=== PATIENT | male | born 1940 | race Caucasian/White ===

== ENCOUNTER 2025-04-28 16:35 | Inpatient (IN) | payer MEDICARE, MEDICAID, SELFPAY ==
[2025-04-28] VITALS (36 sets, daily range): BP systolic 73–159; BP diastolic 44–91; PULSE 76–182; RESP 16–31; TEMP 36.4; O2SAT 54–98; BMI 20.3
--- NOTE | 2025-04-28 17:51 | XR_ITS ---
Examination: AP chest single view Technique one AP portable semiupright chest single view Date and time: April 28, 2025, 1812 hours Comparison August 03, 2021 INDICATIONS: Shortness of breath today with altered mental status. FINDINGS: Severe diffuse pneumonia on the right, consider aspiration pneumonia No significant cardiac enlargement Mild to moderate vascular congestion Moderate osteopenia IMPRESSION: Severe diffuse right lung pneumonia, consider aspiration pneumonia
--- NOTE | 2025-04-28 17:51 | EKG_ITS ---
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
--- NOTE | 2025-04-28 17:57 | PD.EDRME ---
Rapid Medical Screening Exam RME Arrival date/time: 04/28/25 16:35 Chief Complaint: Shortness of Breath/Dyspnea Time Seen by Provider: 04/28/25 18:31 Vital signs: Vital Signs Temperature 97.5 F 04/28/25 16:49 Pulse Rate 151 H 04/28/25 16:49 Respiratory Rate 26 H 04/28/25 16:49 Blood Pressure 132/75 H 04/28/25 16:49 Pulse Oximetry (%) 95 04/28/25 16:49 Oxygen Delivery Method Oxy Mask 04/28/25 16:49 Oxygen Flow Rate 15 04/28/25 16:49 RME Narrative: 84 year old male was BIBA from home for evaluation of shortness of breath and altered mental status. Per medics, BS 61 and given oral glucose by fire department, repeat BS 71. Patient is an active tobacco smoker.
[2025-04-28 18:08] LABS: Collection Type, Urine Clean Catch; RBC,Urine 0 /hpf (0-3)
[2025-04-28 18:09] LABS: Basophils # (Auto) 0.0 Thou/mm3 (0.0-0.2); Basophils % (Auto) 0 % (0-2.5); Eosinophils # (Auto) 0.1 Thou/mm3 (0.0-0.5); Eosinophils % (Auto) 1 % (0-10); Hematocrit 48.8 % (41.0-53.0); Hemoglobin 16.2 g/dL (13.5-16.0); Immature Granulocytes Auto 5.00 Thou/mm3 (0.00-0.00); Lactate (Lactic Acid) 4.7 mMol/L (0.4-2.0); Lymphocytes # (Auto) 0.3 Thou/mm3 (1.0-4.8); Lymphocytes % (Auto) 3 % (10-50); Mean Corpuscular HGB Conc 33.2 g/dl (31.0-37.0); Mean Corpuscular Hemoglobin 31.2 pg (25.0-35.0); Mean Corpuscular Volume 94 fL (80-100); Monocytes # (Auto) 0.3 Thou/mm3 (0.0-0.8); Monocytes % (Auto) 4 % (0-12); Neutrophils # (Auto) 3.2 Thou/mm3 (1.8-7.7); Neutrophils % (Auto) 37 % (37-80); Nucleated Red Blood Cell # 0.00 Thou/mm3 (0.00-0.00); Nucleated Red Blood Cell % 0 /100 WBC (0); Platelet Count 679 Thou/mm3 (140-440); RDW Standard Deviation 64.5 fL (35.1-43.9); Red Blood Count 5.19 Miln/mm3 (4.50-5.90); White Blood Count 8.9 Thou/mm3 (3.8-10.6)
[2025-04-28] MEDS: DEXTROSE 50%-WATER INJ 50 ML SYRINGE IVP (18:15)
[2025-04-28 18:20] LABS: Bacteria,Urine Rare; Bilirubin,Urine 1+ (Negative); Blood,Urine Negative (Negative); Clarity,Urine Turbid (Clear/Hazy); Color,Urine Yellow (Lt Yel-Yel); Glucose, Urine Negative (Negative); Hyaline Casts,Urine 1 /hpf (0-1); Ketones,Urine Trace (Negative); Leukocyte Esterase,Urine Positive (Negative); Nitrite,Urine Negative (Negative); PH,Urine 5.5 (5.0-7.0); Protein,Urine 1+ (Neg - Trace); Specific Gravity,Urine 1.027 (1.001-1.035); Squamous Epithelial Cell,Urine 2 /hpf (0-5); Urobilinogen,Urine Negative mg/dL (0.0-1.0); WBC,Urine 12 /hpf (0-5)
[2025-04-28 18:28] LABS: INR 1.2 (0.9-1.3); Partial Thromboplastin Time 32.2 Seconds (22.0-36.0); Prothrombin Time 13.2 Seconds (9.0-12.2)
[2025-04-28 18:29] LABS: B-Type Natriuretic Peptide 1079 pg/mL (0-100)
--- NOTE | 2025-04-28 18:29 | EDNOTE_ITS ---
ED SOB =RME/HPI General Chief Complaint: Shortness of Breath/Dyspnea Stated Complaint: SHORTNESS OF BREATH Time Seen by Provider: 04/28/25 18:31 Arrival date/time: 04/28/25 16:35 Limitations: no limitations RME / HPI RME / HPI Narrative: 84 year old male was BIBA from home for evaluation of shortness of breath and altered mental status. Per medics, BS 61 and given oral glucose by fire department, repeat BS 71. Patient is an active tobacco smoker. -------- Dr. Hay's Main ED Evaluation: 84yo male with a history of COPD BIBA from home presents to the ED for complaints of AMS and shortness of breath. Patient was found to have a blood sugar of 61 and was given oral glucose by the fire department, it went up to 71. Patient was placed on 15L nonrebreather mask en route and went up to 95% (from 75% room air). Patient is febrile here. Full ROS is unobtainable due to the patient's AMS. Related Data Home Medications ?Medication ?Instructions ?Recorded ?Confirmed albuterol sulfate 90 mcg/actuation 2 puff inhalation Q 4HR 08/04/21 08/04/21 aerosol inhaler docusate sodium 100 mg tablet 100 mg PO PRN 08/04/21 1 10/04/20 (Stool Softener) hydrocodone 5 mg-acetaminophen 325 5 - 325 tab PO CRISTIAN Y PRN Pain 08/04/21 08/04/21 mg tablet ipratropium 0.5 mg-albuterol 3 mg 3 ml inhalation Q6H 08/04/21 08/04/21 (2.5 mg base)/3 mL nebulization soln ipratropium 0.5 mg-albuterol 3 mg 3 ml inhalation QDAY 08/04/21 08/04/21 (2.5 mg base)/3 mL nebulization soln montelukast 10 mg tablet 10 mg PO HS 08/04/21 1 ondansetron 4 mg disintegrating 4 mg PO Q4HR 08/04/21 08/04/21 tablet tamsulosin 0.4 mg capsule 0.4 mg PO DAILY 08/04/2102/17 Previous Rx's ?Medication ?Instructions ?Recorded miscellaneous medical supply #1 ea 08/05/21 (Blood Pressure Cuff) Allergies Allergy/AdvReac Type Severity Reaction Status Date / Time No Known Allergies Allergy Verified 04/28/25 17:53 Review of Systems Review of Systems ROS Unobtainable: unobtainable due to medical condition Past Medical History Past Medical History NEUROLOGIC: Negative Neurological Disorders CARDIAC: Negative Cardiac Disorders, Congestive Heart Failure or Hypertension RESPIRATORY: Positive Chronic Obstructive Pulmonary Disease (COPD) GASTROINTESTINAL: Positive Gastrointestinal Disorders and Colitis GENITOURINARY: Positive Genitourinary Disorders and Benign Prostatic Hyperplasia; Negative Renal Disease MUSCULOSKELETAL: Positive Musculoskeletal Disorders 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) ENDOCRINE: Negative Diabetes Mellitus Type 1 or Diabetes Mellitus Type 2 HEMATOLOGIC: Negative Blood Disorders OTHER HISTORY: Positive Blood Transfusions; Negative Hospitalization, Autoimmune Disease, Down Syndrome, Developmental Delay, Shingles, Falls, Blood Transfusion Reaction, Anesthesia Reactions, Organ Transplant, Chemotherapy, Hyperbaric Therapy, MRSA, VRSA, Vancomycin-Resistant Enterococci, Chicken Pox, Clostridium Difficile or Cancer Family History FAMILY HISTORY: Positive Family Respiratory Disorders and Family Cardiac Disorders; Negative Family Psychiatric Problems, Family Gastrointestinal Problems, Family Cancer, Family Surgery or Family Anesthesia Reaction Surgical History SURGICAL: Negative Cardiac Surgery, Endocrine Surgery, Ear Surgery, Tympanostomy Tube, Abdominal Surgery, Nephrectomy, Transurethral Resection, Joint Replacement, Amputation, Neurologic Surgery, Mastectomy, Vasectomy or Organ Transplant Social History SMOKING STATUS: Heavy (> 1 pack/day) SECOND HAND EXPOSURE: No ED Exam General Limitations: Present no limitations General appearance: Present alert and cachectic Head Head exam: Present atraumatic Eye Eye exam: Present normal appearance, PERRL and EOMI ENT ENT exam: Present normal exam, normal oropharynx and mucous membranes moist Neck Neck exam: Present normal inspection, full ROM and trachea midline Chest Chest inspection: Present normal inspection and symmetric chest wall rise Respiratory Respiratory exam: Present other (rhonchi throughout) Cardiovascular Cardiovascular exam: Present regular rate, normal rhythm and normal heart sounds Abdominal Exam Abdominal exam: Present soft and other (scaphoid) Extremities Exam Extremities exam: Present normal inspection, full ROM (of all 4 extremities) and other (no cellulitis) Back Exam Back exam: Present normal inspection and full ROM Neurological Exam Neurological exam: Present alert, CN II-XII intact and other (awake) Psychiatric Psychiatric exam: Present normal affect and normal mood Skin Skin exam: Present warm, dry, intact and mottled Course Course Course Narrative: CXR is ordered for determining the etiology of shortness of breath. 1800: Sepsis alert initiated. Orders made at this time are congruent with ED Adult Sepsis Order List. Re-evaluation is to be completed. 1855: RT states the patient keeps removing the BiPAP mask, so she placed him on an oxy mask. 1912: Patient became more altered and less responsive. Patient placed in a tra sapphire room. 1914: Patient lost ROSC while I was at bedside. Code blue called overhead. Medications including epinephrine and bicarb given. See code sheet for medication details. 1917: ROSC obtained. 1920: Patient intubated by Dr. aWlker, PGY-3, ICU resident. See his procedure note. 1922: NS IVF started. 1928: Central line place by Dr. Walker, PGY-3, ICU resident. See his procedure note. Arterial line placed by Dr. Walker, PGY-3, ICU resident. See his procedure note. Sepsis re-evaluation pending at the time of admission. Quality Measures Current suspected stage: septic shock (LA >4 and/or hypotension) Sepsis reassessment completed at (date): 04/28/25 Sepsis reassessment completed at (time): 21:00 Possible source: pulmonary Blood cultures ordered: yes Antibiotic ordered: Yes Pertinent labs: 04/28/25 17:47 Lactic Acid 4.7 H* mMol/L (0.4-2.0) Procalcitonin ng/ml (0.0-0.49) sepsis Orders Category Date Time Status 24 HR Medical Restraints Q2HR Care 04/28/25 19:40 Active Bedside COVID-19 Antigen Test NOW Care 04/28/25 17:52 Active Bedside Influenza A&B Antigen Test NOW Care 04/28/25 17:52 Completed Passenger Locomotive Engineer NOW Care 04/28/25 17:51 Active EKG (ED ONLY) *Do not use* NOW Care 04/28/25 17:51 Completed Mo [Urinary Catheter] QS Care 04/28/25 19:40 Active Insert NG / OG tube NOW Care 04/28/25 19:46 Active Intubation NOW Care 04/28/25 19:40 Completed EKG (ED Only) Stat Exams 04/28/25 17:51 Draft XR chest 1V portable Stat Exams 04/28/25 17:51 Completed XR chest 1V post procedure Stat Exams 04/28/25 19:22 Completed ABG [Arterial Blood Gas] Stat Lab 04/28/25 18:35 Completed ABG [Arterial Blood Gas] Stat Lab 04/28/25 20:42 Completed B-Type Natriuretic Peptide Stat Lab 04/28/25 17:47 Completed Blood Culture (Lab) Stat Lab 04/28/25 17:58 Received CBC Stat Lab 04/28/25 17:47 Completed Comprehensive Metabolic Panel Stat Lab 04/28/25 17:47 Completed Lactate (Lactic Acid) Stat Lab 04/28/25 17:47 Completed Lipase Stat Lab 04/28/25 17:47 Completed Magnesium Stat Lab 04/28/25 17:47 Completed Partial Thromboplastin Time Stat Lab 04/28/25 17:47 Completed Procalcitonin Stat Lab 04/28/25 17:47 Completed Prothrombin Time with INR Stat Lab 04/28/25 17:47 Completed Sputum Culture and Gram Stain Stat Lab 04/28/25 19:59 Received Troponin I Stat Lab 04/28/25 17:47 Completed Urinalysis Stat Lab 04/28/25 18:00 Completed Urine Culture Stat Lab 04/28/25 18:00 Received Dextrose 50% Syr [D50w Syringe Abboject] Med 04/28/25 17:48 Discontinued 50 ml IVP X1 ONE Etomidate Inj [Amidate Inj] Med 04/28/25 19:09 Discontinued 20 mg .ROUTE .STK-MED ONE Etomidate Inj [Amidate Inj] Med 04/28/25 19:19 Discontinued 20 mg IVP X1 ONE Midazolam/Ns 100 mg Ivpb [Versed Pf Inj in Ns Premix] Med 04/28/25 19:27 Discontinued 100 mg in 100 ml IV 1 mg/hr Sodium Chloride Rt Daisy 10% [NS Rt Daisy 10%] Med 04/28/25 19:54 Discontinued 5 ml INH X1 ONE Succinylcholine Inj [Anectine Inj] Med 04/28/25 19:20 Discontinued 125 mg IV X1 ONE Succinylcholine Inj [Anectine Inj] Med 04/28/25 19:13 Discontinued 200 mg .ROUTE .STK-MED ONE cefTRIAXone/D5w 1gm IV premix [Rocephin/D5w 1gm IV Med 04/28/25 18:51 Discontinued premix] 1 gm in 50 ml IV X1 fentaNYL 2,500 MCG/250 ML BAG [Sublimaze Inj 2,500 MCG/ Med 04/28/25 19:26 Discontinued 250 ML BAG] 2,500 mcg in 250 ml IV 25 mcg/hr BiPAP / CPAP NEEDED RT 04/28/25 18:39 Active Sputum Induction PRN RT 04/28/25 20:00 Ordered Vital Signs Vital signs: Vital Signs Temperature 97.5 F 04/28/25 16:49 Pulse Rate 151 H 04/28/25 16:49 Respiratory Rate 26 H 04/28/25 16:49 Blood Pressure 132/75 H 04/28/25 16:49 Pulse Oximetry (%) 95 04/28/25 16:49 Oxygen Delivery Method Oxy Mask 04/28/25 16:49 Oxygen Flow Rate 15 04/28/25 16:49 Shortness of Breath / Dyspnea MDM Narrative MDM Narrative:: Scribe Attestation: 04/28/25 - Liz Frank am scribing for and in the presence of Dr. Hay. 84-year-old male who presents to the emergency department with shortness of breath The patient is immediately placed in a room. Sepsis alert was called. Patient is awake and talking in full sentences. BiPAP is established pending ABG and reevaluation. Patient intubated for airway protection and acute respiratory distress. 1 L Bolus given in blood pressure 93 systolic. Patient data External records reviewed:: [facility] previous records (Per chart review, patient has no relevant previous ED visits.) and EMS form Clinical information provided by:: EMS Social determinants that could affect healthcare access:: substance use (tobacco) Patient has the following chronic illnesses:: COPD How is presenting disease/condition affected by chronic disease/condition?: exacerbated by Evaluation data The following diagnostics were reviewed and interpreted by me:: lab results, radiology exam(s) and EKG tracing(s) Lab and/or radiology exams considered but not ordered:: none Interpretation Summary: CBC normal, Lactic Acid 4.7, BNP 1079, Creatinine 1.5, Troponin 0.783, Pro calcitonin ABG shows pH 7.19, pCO2 46, HCO3 18. UA remarkable for positive leukocyte esterase and 12 WBCs. EKG done at 1728, sinus tachycardia, rate of 153, LA: 137, QTc: 372, ST-T wave changes, no STEMI, according to my interpretation. ------- [facility] Report Signed Patient: JORGITO HANNA Record#: [id number] Birthdate: 1940 Age/Sex: 84 / M Location: [facility] Attending Dr: Ordering Physician: Josey Mancuso MD Date of Service: 04/28/25 Procedure(s): XR chest 1V portable Accession Number(s): [id number] cc: Jessi Wallace PA-C; Tony Muller MD; Josey Mancuso MD~ Examination: AP chest single view Technique one AP portable semiupright chest single view Date and time: April 28, 2025, 1812 hours Comparison August 03, 2021 INDICATIONS: Shortness of breath today with altered mental status. FINDINGS: Severe diffuse pneumonia on the right, consider aspiration pneumonia No significant cardiac enlargement Mild to moderate vascular congestion Moderate osteopenia IMPRESSION: Severe diffuse right lung pneumonia, consider aspiration pneumonia Dictated By: Tony Muller MD Signed By: <Electronically signed by Tony Muller MD Medications / Prescriptions Medications or Prescriptions considered but not ordered:: none Medication administrations:: Medication Administration History Artificial Tears (Artificial Tears 225 Drop/15 Ml Btl) 1 drop BOTH EYES Q4HR PRN PRN Reason: Dry eyes Stop: 05/28/25 21:52 Morphine Sulfate (Morphine Sulfate Iv Drip 100mg/100ml) 100 mls @ 1 mls/hr IV .Q24H PRN; Protocol PRN Reason: PAIN (COMFORT CARE) Stop: 05/03/25 21:52 Scopolamine (Scopolamine 1 Mg Tdsy) 1 mg TOP Q3D OUMOU Stop: 05/28/25 21:59 Discontinued Medications Albuterol/Ipratropium (Albuterol/Ipratropium (Duoneb) Rt Daisy 3 Ml Nebu) 3 ml INH Q4HRRT OUMOU Stop: 05/28/25 22:59 Dextrose (Dextrose 50%-Water Inj 50 Ml Syringe) 50 ml IVP X1 ONE Stop: 04/28/25 17:49 Last Admin: 04/28/25 18:15 Dose: 50 ml Documented By: NGUYEN Etomidate (Etomidate Inj 2 Mg/Ml Vial 10 Ml) 20 mg IVP X1 ONE Stop: 04/28/25 19:20 Last Admin: 04/28/25 19:32 Dose: 20 mg Documented By: MAGAN Etomidate (Etomidate Inj 2 Mg/Ml Vial 10 Ml) Confirm Administered Dose 20 mg .ROUTE .STK-MED ONE Stop: 04/28/25 19:10 Last Admin: 04/28/25 19:31 Dose: Not Given Documented By: EE Non-Admin Reason: Override Medication Heparin Sodium (Porcine) (Heparin Sod Inj 5000 Unit/Ml Vial) 5,000 unit SC Q8HR OUMOU Stop: 05/12/25 21:59 Last Admin: 04/28/25 21:35 Dose: 5,000 unit Documented By: MAGAN Co-signed By: CHAZ Hydrocortisone Sodium Succinate (Hydrocortisone Sod Succ Inj 100 Mg Vial) 100 mg IV X1 ONE Stop: 04/28/25 21:04 Last Admin: 04/28/25 21:35 Dose: 100 mg Documented By: MAGAN Ceftriaxone Sodium/Dextrose (Rocephin/D5w 1gm Iv Premix) 1 gm in 50 mls @ 100 mls/hr IV X1 ONE Stop: 04/28/25 19:20 Last Admin: 04/28/25 20:55 Dose: Not Given Documented By: EE Non-Admin Reason: Cancelled by Provider Comments: CAN BY DR HYLTON Fentanyl Citrate (Sublimaze Inj 2,500 Mcg/250 Ml Bag) 2,500 mcg in 250 mls @ 2.5 mls/hr IV .Q24H PRN; Protocol PRN Reason: PER PROTOCOL Stop: 05/03/25 19:25 Last Titration: 04/28/25 21:59 Dose: 0 mcg/hr, 0 mls/hr Documented By: Titration: 04/28/25 21:30 Dose: 125 mcg/hr, 12.5 mls/hr Documented By: Titration: 04/28/25 21:00 Dose: 125 mcg/hr, 12.5 mls/hr Documented By: Titration: 04/28/25 20:45 Dose: 125 mcg/hr, 12.5 mls/hr Documented By: Titration: 04/28/25 20:30 Dose: 125 mcg/hr, 12.5 mls/hr Documented By: Titration: 04/28/25 20:00 Dose: 75 mcg/hr, 7.5 mls/hr Documented By: Admin: 04/28/25 19:30 Dose: 25 mcg/hr, 2.5 mls/hr Documented By: EE Co-signed By: NGUYEN Midazolam HCl (Versed Pf Inj In Ns Premix) 100 mg in 100 mls @ 1 mls/hr IV .Q24H PRN; Protocol PRN Reason: PER PROTOCOL Stop: 05/03/25 19:26 Last Titration: 04/28/25 21:59 Dose: 0 mg/hr, 0 mls/hr Documented By: Titration: 04/28/25 21:45 Dose: 2 mg/hr, 2 mls/hr Documented By: Titration: 04/28/25 20:45 Dose: 2 mg/hr, 2 mls/hr Documented By: Titration: 04/28/25 20:30 Dose: 2 mg/hr, 2 mls/hr Documented By: Titration: 04/28/25 19:45 Dose: 1 mg/hr, 1 mls/hr Documented By: Admin: 04/28/25 19:30 Dose: 1 mg/hr, 1 mls/hr Documented By: EE Co-signed By: NGUYEN Norepinephrine Bitartrate (Levophed In Ns 16mg/250ml) 16 mg in 250 mls @ 2.934 mls/hr IV .Q24H PRN; Protocol PRN Reason: PER PROTOCOL Stop: 05/28/25 20:37 Last Titration: 04/28/25 21:59 Dose: 0 mcg/kg/min, 0 mls/hr Documented By: Admin: 04/28/25 20:50 Dose: 1 mcg/kg/min, 58.684 mls/hr Documented By: MAGAN Piperacillin Sod/Tazobactam (Sod 4.5 gm/ Sodium Chloride) 100 mls @ 200 mls/hr IV Q8HR OUMOU Stop: 05/05/25 20:59 Last Admin: 04/28/25 21:20 Dose: Not Given Documented By: EE Non-Admin Reason: Duplicate Medication on eMAR Vancomycin HCl (Vancomycin/Water 1250 Mg Ivpb) 250 mls @ 120 mls/hr IV X1 ONE Stop: 04/28/25 23:04 Vasopressin/Sodium Chloride (Vasostrict/Ns Ivpb) 20 unit in 100 mls @ 9 mls/hr IV .Q11H7M PRN; Protocol PRN Reason: PER PROTOCOL Stop: 05/28/25 21:04 Pantoprazole Sodium (Pantoprazole Inj 40 Mg Vial) 40 mg IVP QDAY PENDING SALE TO [facility] Stop: 05/29/25 08:59 Pharmacy Consult (Vancomycin Pharmacy To Dose 1 Each Each) 1 each IV QDAY OUMOU Stop: 05/28/25 20:44 Sodium Chloride (Sodium Chloride Rt 10% 15 Ml Nebu) 5 ml INH X1 ONE Stop: 04/28/25 19:55 Last Admin: 04/28/25 21:00 Dose: Not Given Documented By: NE Non-Admin Reason: Other, see note Comments: pt intubated sputum sent to lab Succinylcholine Chloride (Succinylcholine Inj 20 Mg/Ml Vial 10 Ml) 125 mg 2 mg/kg (125 mg) IV X1 ONE Stop: 04/28/25 19:21 Last Admin: 04/28/25 20:56 Dose: Not Given Documented By: EE Non-Admin Reason: Cancelled by Provider Succinylcholine Chloride (Succinylcholine Inj 20 Mg/Ml Vial 10 Ml) Confirm Administered Dose 200 mg .ROUTE .STK-MED ONE Stop: 04/28/25 19:14 Last Admin: 04/28/25 19:31 Dose: Not Given Documented By: EE Non-Admin Reason: Override Medication see above Consultations Consultation(s) initiated? (list below): Yes Consultation #1 (Physician, Specialty, Details): Discussed case with Dr. Walker, ICU resident, regarding admission. Discussed patients ED course, exam findings, labs, and radiology results. He agrees to accept the patient for admission. Time: 20:08 Diagnosis Shortness of Breath Differential Diagnosis: acute exacerbation of chronic obstructive airways disease, congestive heart failure, community acquired pneumonia and other (sepsis, septic shock, hypoglycemia) Most likely diagnosis given after review of the tests above:: see clinical impression below Admission Indicated Admission indicated?: indicated Admission Request Was there a request for admission?: Yes Admission Attestation Admission request attestation: Discussed case with [] from Hospitalist service regarding admission. Discussed patients ED course, exam findings, labs, and radiology results. The Hospitalist [agrees,declines] to accept the patient for admission. Disposition Plan Disposition Plan: Admit Critical Care Time Critical Care Time Critical Care Time: Yes Total Critical Care Time (min.): 60 Attestation: The high probability of sudden, clinically significant deterioration in the patient?s condition required the highest level of my preparedness to intervene urgently. The services I provided to this patient were to treat and/or prevent clinically significant deterioration. Services included the following: chart data review, reviewing nursing notes and/or old charts, documentation time, economic consultant collaboration regarding findings and treatment options, medication orders and management, direct patient care, vital sign assessments and ordering, interpreting and reviewing diagnostic studies and lab tests. Aggregate critical care time includes only time during which I was engaged in work directly related to the patient?s care, as described above, whether at bedside or elsewhere in the Emergency Department. It did not include time spent performing other reported procedures or the services of residents, students, nurses or physician assistants. Discharge Plan Plan Patient Disposition: Admit Acute Care w/in Hospital Problem List Clinical Impression: Acute exacerbation of chronic obstructive airways disease, Aspiration pneumonia, Acute UTI, Sepsis
[2025-04-28 18:50] LABS: Base Excess -10 (-3-3); HCO3 18 mEq/L (20-26); Inspired Oxygen, FIO2 100 %; O2 Saturation 100 % (91-98); PCO2 46 mmHg (32.0-48.0); PO2 184 mmHg (83-108)
--- NOTE | 2025-04-28 18:51 | PC.RT ---
pt taking off bipap mask and stated he does not want it, place on a oxymask 10L
[2025-04-28 18:52] LABS: Allen Test Performed/OK; Puncture Site Right Radial; pH, Arterial 7.19 (7.35-7.45)
[2025-04-28 18:56] LABS: Anion Gap 17 (7-16); Blood Urea Nitrogen 43 mg/dL (9-23); Carbon Dioxide 20.9 mMol/L (20.0-31.0); Chloride 100 mMol/L (98-107); Potassium 3.4 mMol/L (3.4-5.1); Sodium 138 mMol/L (136-145)
[2025-04-28 18:57] LABS: Alanine Aminotransferase 21 U/L (10-49); Aspartate Amino Transferase 47 U/L (0-34); BUN/Creatinine Ratio 29 Ratio (12-20); Bilirubin,Total 0.6 mg/dL (0.3-1.2); Calcium 9.2 mg/dL (8.3-10.6); Creatinine (Component) 1.5 mg/dL (0.6-1.3); Estimated Creatinine Clearance 33.6 mL/min (>60); Glucose 66 mg/dL (74-106); Magnesium 1.6 mg/dL (1.6-2.6); Osmolality,Calculated 284 (275-295); eGFR 46 See Note
[2025-04-28 18:58] LABS: Albumin, Serum 4.0 gm/dL (3.4-4.8); Albumin/Globulin Ratio 1.6 (1.2-2.2); Alkaline Phosphatase 66 U/L (46-116); Calcium (Corrected) 9.2 mg/dL (8.5-10.1); Globulin 2.5 gm/dL (2.3-3.5); Total Protein 6.5 gm/dL (5.7-8.2); Troponin I 0.783 ng/mL (0.0-0.045)
[2025-04-28 18:59] LABS: Lipase 17 U/L (12-53)
--- NOTE | 2025-04-28 19:22 | XR_ITS ---
Examination: AP chest single view Technique one AP portable supine chest single view Date and time: April 28, 2025, 1934 hours, comparison April 28, 2025 1812 hours INDICATIONS: Hypoxic respiratory failure postintubation post nasogastric tube placement FINDINGS: Severe pneumonia diffusely in the right lung Endotracheal tube tip 4 cm above Henna. Advance the orogastric tube 4 cm Normal heart size IMPRESSION: Advance the orogastric tube 4 cm
[2025-04-28] MEDS: fentaNYL 2,500 MCG/250 ML BAG 2,500 MCG/250 ML BAG IV (19:30)
[2025-04-28] MEDS: MIDAZOLAM/NS 100 MG IVPB 100 MG/100 ML BAG IV (19:30)
[2025-04-28] MEDS: ETOMIDATE INJ 2 MG/ML VIAL 10 ML 20 MG IVP (19:32)
--- NOTE | 2025-04-28 20:08 | PD.RESPROC ---
PROCEDURES: Procedure Date / Time 04/28/251920 Intubation Indication(s): acute Resp Failure and inability to protect airway Informed consent obtained: procedure done urgently Time out done, and the following verified: correct patient, side and site, procedure, patient position and implants and/or equipment Sedative: none Sedative #2: none Paralytic: other (none) Laryngoscope: fiber optic video scope Assist device used: fiber optic device ET tube size: 7.5 ET tube uncuffed: No Tube secured depth (cm): 26 Tube secured location: teeth Tube placement confirmation: visualized tube passing through cords, equal breath sounds bilaterally, no breath sounds over epigastrium and confirmation by capnometry Patient tolerated procedure: well and no complications EBL(ml): 0 Intubation complications: none Additional comments: Procedure performed under supervision of Dr. Kelly. Moustapha Walker MD, PGY 3. Disclaimer: This note was dictated by speech recognition. Minor errors in system developer associate manager may be present due to voice recognition software.
--- NOTE | 2025-04-28 20:11 | ESOP_ITS ---
PROCEDURES: Procedure Date / Time 04/28/251941 Central Line Placement Right Femoral: Indication(s): shock and poor, or inadequate peripheral venous access Informed consent obtained: procedure done urgently Time out done, and the following verified: correct patient, side and site, procedure, patient position and implants and/or equipment Patient placed on monitor/pulse ox: Yes Hand Hygiene: scrub, soap & water and alcohol-based hand rub Max Sterile Barrier Techniques used: cap, mask, sterile gown, sterile gloves and sterile full body drape Central line prep: Povidone-Iodine 1% Local anesthesia used: other anesthetic (none) Ultrasound used for placement: Yes Sterile Technique if Ultrasound used, including sterile gel: yes Central line lumen inserted: triple Post procedure: sutured in place, good blood return, all ports aspirated, flushed, capped and sterile dressing applied Patient tolerated procedure: well and no complications EBL(ml): 10 Complications: none Procedure comment: Procedure performed under supervision of Dr. Kelly. Moustapha Walker MD, PGY 3. Disclaimer: This note was dictated by speech recognition. Minor errors in accounts payable coordinator may be present due to voice recognition software.
--- NOTE | 2025-04-28 20:13 | PD.RESPROC ---
PROCEDURES: Procedure Date / Time 04/28/251957 Arterial Line Indication(s): frequent arterial line sampling, hypoxic resp failure and shock Informed consent obtained: procedure done urgently Time out done, and the following verified: correct patient, side and site, procedure, patient position and implants and/or equipment Size (Gauge): 20 Technique used: guide wire technique Post-Procedure: line sutured into place and dry sterile dressing placed Patient tolerated procedure: well and no complications EBL(ml): 5 Complications: none Site: right and radial Procedure comment: Procedure performed under supervision of Dr. Kelly. Moustapha Walker MD, PGY 3. Disclaimer: This note was dictated by speech recognition. Minor errors in heel sprayer first may be present due to voice recognition software.
--- NOTE | 2025-04-28 20:15 | ESHP_ITS ---
<Statement entered by Uli Peña MD - 04/28/25 23:29> I have discussed and was present for the essential components of the history, physical examination, diagnosis, and treatment plan with the resident. I agree with the patient's care as documented by the resident and amended herein by me. Uli Peña MD FACP. Documentation for date of: 04/28/25 HPI History of Present Illness Chief complaint: cardiac arrest History of present illness: Patient is 84 years old male with past medical history of hypertension, BPH, COPD presented to the ED from home due to worsening shortness of breath and altered mental status. At the time of evaluation patient is intubated and sedated. Per emergency room notes while transported to the hospital patient was found to be hypoglycemic and hypoxemic, was given D50 and was started on 15 L oxygen with improvement of saturation to 97%. On admission his initial vitals were blood pressure 132/75, pulse 151, respirations 26, temperature 97.5 ?F, oxygen saturation 95% on 15 L. Labs showed WBCs 8.9, hemoglobin 16.2, PLT 679, creatinine 1.5, BUN 43, glucose 66, lactic acid 4.7, anion gap 17, AST 47, troponin I 0.783, BNP 1079. UA showed turbid urine with 1+ protein, 1+ bilirubin, positive leukocyte esterase, WBCs 12, rare bacteria. EKG showed sinus tachycardia. Chest x-ray showed diffuse right-sided pneumonia. While evaluated in the emergency room patient suddenly became unresponsive, sinus bradycardia at 40s was noticed on monitor and pulses were not palpable, CODE BLUE was called, ACLS was started, patient underwent 2 rounds of CPR with epinephrine x 2 with ROSC. Immediately after he was intubated, central line and arterial line were placed. Patient was started on vasopressors and was admitted to ICU for further management. Family was contacted. PMH: hypertension, BPH, COPD. PSH: Unknown. SH: Active tobacco smoker for many years. Unknown alcohol and drug status. FH: none. Allergies: NKA. Medications: Med rec is pending. Review of Systems Review of Systems ROS Unobtainable: due to endotracheal tube Exam Vital Signs Temp Pulse Resp BP Pulse Ox O2 Del Method O2 Flow Rate 97.5 F 143 H 31 H 97/61 98 Oxy Mask 15 04/28/25 16:49 04/28/25 19:50 04/28/25 18:40 04/28/25 19:50 04/28/25 18:40 04/28/25 16:49 04/28/25 16:49 FiO2 100 04/28/25 19:50 Narrative Exam Gen: Well-developed cachectic male, intubated and sedated. HEENT: NCAT, pupils are constricted and poorly reactive to light, MMM, anicteric conjunctivae. CVS: normal S1 and S2. Regular tachycardia. No M/R/G. Resp: Rhonchi B/L, R>L. No rales, crackles or wheezing. Abd: soft, non-tender, non-distended. BS+ in all 4 quadrants. MSK: Good ROM in BUE & BLE. No edema. Mottling noted over his chest abdomen and lower extremities. Skin is barrera-colored. Neuro: Limited exam due to sedation. Able to move all extremities. Results: Labs 04/28/25 21:25 04/28/25 17:47 Labs: Short CBC 04/28/25 Range/Units 17:47 WBC 8.9 (3.8-10.6) Thou/mm3 Hgb 16.2 H (13.5-16.0) g/dL Hct 48.8 (41.0-53.0) % Plt Count 679 H (140-440) Thou/mm3 BMP 04/28/25 17:47 Sodium 138 Potassium 3.4 Chloride 100 Carbon Dioxide 20.9 BUN 43 H Creatinine 1.5 H Glucose 66 L Calcium 9.2 Cardiac Enzymes 04/28/25 Range/Units 17:47 Troponin I 0.783 H* (0.0-0.045) ng/mL Liver Function 04/28/25 Range/Units 17:47 Total Bilirubin 0.6 (0.3-1.2) mg/dL AST 47 H (0-34) U/L ALT 21 (10-49) U/L Alkaline Phosphatase 66 (46-116) U/L Albumin 4.0 (3.4-4.8) gm/dL Urine 04/28/25 Range/Units 18:00 Urine Color Yellow (Lt Yel-Yel) Urine Clarity Turbid A (Clear/Hazy) Urine pH 5.5 (5.0-7.0) Ur Specific [place] 1.027 (1.001-1.035) Urine Protein 1+ A (Neg - Trace) Urine Glucose (UA) Negative (Negative) ABG Interpretation ABG results: 04/28/25 18:35 ABG pH 7.19 L* ABG pCO2 46 ABG pO2 184 H ABG HCO3 18 L ABG O2 Saturation 100 H ABG Base Excess -10 L Quality Measures Quality Measures sepsis Current suspected stage: septic shock (LA >4 and/or hypotension) Sepsis reassessment completed at (date): 04/28/25 Sepsis reassessment completed at (time): 22:15 Possible source: pulmonary Blood cultures ordered: yes Antibiotic ordered: Yes Advance care planning discussed with:: child Medications Home Medications and Allergies Home Medications ?Medication ?Instructions ?Recorded ?Confirmed ?Type albuterol sulfate 90 mcg/actuation 2 puff inhalation Q 4HR 08/04/21 08/04/21 History aerosol inhaler docusate sodium 100 mg tablet 100 mg PO PRN 08/04/21 1 10/04/20 History (Stool Softener) hydrocodone 5 mg-acetaminophen 325 5 - 325 tab PO CRISTIAN Y PRN Pain 08/04/21 08/04/21 History mg tablet ipratropium 0.5 mg-albuterol 3 mg 3 ml inhalation Q6H 08/04/21 08/04/21 History (2.5 mg base)/3 mL nebulization soln ipratropium 0.5 mg-albuterol 3 mg 3 ml inhalation QDAY 08/04/21 08/04/21 History (2.5 mg base)/3 mL nebulization soln montelukast 10 mg tablet 10 mg PO HS 08/04/21 1 History ondansetron 4 mg disintegrating 4 mg PO Q4HR 08/04/21 08/04/21 History tablet tamsulosin 0.4 mg capsule 0.4 mg PO DAILY 08/04/2102/17 History Allergies Allergy/AdvReac Type Severity Reaction Status Date / Time No Known Allergies Allergy Verified 04/28/25 17:53 Visit Medications Fentanyl Citrate (Sublimaze Inj 2,500 Mcg/250 Ml Bag) 2,500 mcg in 250 mls @ 2.5 mls/hr IV .Q24H PRN; Protocol PRN Reason: PER PROTOCOL Stop: 05/03/25 19:25 Last Admin: 04/28/25 19:30 Dose: 25 mcg/hr, 2.5 mls/hr Midazolam HCl (Versed Pf Inj In Ns Premix) 100 mg in 100 mls @ 1 mls/hr IV .Q24H PRN; Protocol PRN Reason: PER PROTOCOL Stop: 05/03/25 19:26 Last Admin: 04/28/25 19:30 Dose: 1 mg/hr, 1 mls/hr Piperacillin/Tazobactam/Dextrose (Zosyn) 3.375 gm in 50 mls @ 100 mls/hr IV X1 ONE Stop: 04/28/25 20:30 Discontinued Medications Dextrose (Dextrose 50%-Water Inj 50 Ml Syringe) 50 ml IVP X1 ONE Stop: 04/28/25 17:49 Last Admin: 04/28/25 18:15 Dose: 50 ml Etomidate (Etomidate Inj 2 Mg/Ml Vial 10 Ml) 20 mg IVP X1 ONE Stop: 04/28/25 19:20 Last Admin: 04/28/25 19:32 Dose: 20 mg Ceftriaxone Sodium/Dextrose (Rocephin/D5w 1gm Iv Premix) 1 gm in 50 mls @ 100 mls/hr IV X1 ONE Stop: 04/28/25 19:20 Sodium Chloride (Sodium Chloride Rt 10% 15 Ml Nebu) 5 ml INH X1 ONE Stop: 04/28/25 19:55 Succinylcholine Chloride (Succinylcholine Inj 20 Mg/Ml Vial 10 Ml) 125 mg 2 mg/kg (125 mg) IV X1 ONE Stop: 04/28/25 19:21 Assessment & Plan Plan Patient is 84 years old male with past medical history of hypertension, BPH, COPD presented to the ED from home due to worsening shortness of breath and altered mental status, while evaluated in the emergency room patient suddenly became unresponsive, sinus bradycardia at 40s was noticed on monitor and pulses were not palpable, CODE BLUE was called, ACLS was started, patient underwent 2 rounds of CPR with epinephrine x 2 with ROSC. Patient was admitted to ICU for further management. #Comfort care. #S/p cardiac arrest with successful resuscitation. #PEA. #Shock, undifferentiated. #Acute heart failure. #Severe right-sided pneumonia. #UTI. #History of COPD. #History of BPH. #History of hypertension. Patient initially presented with altered mental status and worsening shortness of breath, while evaluated in the emergency room patient went to PEA and was successfully resuscitated. He was intubated immediately after ROSC and started on mechanical ventilation. Central and arterial lines were placed, he was started on Levophed. Labs showed worsening lactic acidosis with last reading of 9, ABG showed worsening acidosis with pH 7.1, PCO2 51. He was started on IV vancomycin and Zosyn and was given loading dose of hydrocortisone. His daughter has arrived at the bedside. Goals of care discussion was held at the bedside, she was explained severely he of her father's condition and ultimately decided to proceed with changing his CODE STATUS to DNR/DNI and proceed with comfort care. Conversation was witnessed with by emergency room physician and nurses. All treatment was discontinued and patient was started on comfort measures. Plan: -Morphine drip per comfort care protocol. -Scopolamine patch as needed. -Artificial tears as needed. -Nausea control with Zofran. Diet: NPO, comfort care. DVT prophylaxis: none. GI prophylaxis: none. Lines: Peripheral x 4, central line, arterial line. Tubes: NG tube. Respiratory: Intubated, MV discontinued. Code status: DNR/DNI. Disposition: ICU. Plan of care discussed with attending Dr. Peña. Moustapha Walker MD, PGY 3. Disclaimer: This note was dictated by speech recognition. Minor errors in front maker lockstitch may be present due to voice recognition software.
[2025-04-28 20:47] LABS: Allen Test Performed/OK; Base Excess -14 (-3-3); HCO3 16 mEq/L (20-26); Inspired Oxygen, FIO2 100 %; O2 Saturation 92 % (91-98); PCO2 51 mmHg (32.0-48.0); PO2 79 mmHg (83-108); Puncture Site Arterial Line
[2025-04-28 20:49] LABS: pH, Arterial 7.10 (7.35-7.45)
[2025-04-28] MEDS: Norepinephrine/NS 16mg/250ml 16 MG/250 ML BAG 58.684 MG IV (20:50)
[2025-04-28 21:05] LABS: Reflex Lactate? Y
--- NOTE | 2025-04-28 21:10 | PC.RT ---
Dr. hurtado increased peep to 8
[2025-04-28] MEDS: HEPARIN SOD INJ 5000 UNIT/ML VIAL SC (21:35)
[2025-04-28] MEDS: HYDROCORTISONE SOD SUCC INJ 100 MG VIAL IV (21:35)
--- NOTE | 2025-04-28 21:39 | PC.NURSE ---
RESIDENT CONCETTA AT BEDSIDE SPEAKING TO PAM PT'S DAUGHTER WHO STATES SHE WOULD LIKE TO MAKE PT COMFORT MEASURES THOSE WERE PT'S WISHES. PROVIDER CONCETTA INFORMED ER DR STEVENSON.
[2025-04-28 21:41] LABS: Lactate (Lactic Acid) 9.0 mMol/L (0.4-2.0)
--- NOTE | 2025-04-28 21:47 | EVENTNT_ITS ---
Documentation for date of: 04/28/25 Event Note Event Note: Patient's daughter presented to the bedside. She was explained severity of her father's condition. She is a decision maker and reports that her father would note like to be in this condition and would not like to be resuscitated, she would like to proceed to switch his CODE STATUS to DNR/DNI and proceed with comfort care. Plan of care discussed with attending Dr. Peña. Moustapha Walker MD, PGY 3. Disclaimer: This note was dictated by speech recognition. Minor errors in commercial baker helper may be present due to voice recognition software.
[2025-04-28 21:48] LABS: Glucose Estimated Average 103 mg/dL (80-131); Hemoglobin A1C 5.2 % Hgb (4.8-6.0)
[2025-04-28 21:49] LABS: Basophils # (Auto) 0.1 Thou/mm3 (0.0-0.2); Basophils % (Auto) 1 % (0-2.5); Eosinophils # (Auto) 0.0 Thou/mm3 (0.0-0.5); Eosinophils % (Auto) 0 % (0-10); Hematocrit 45.5 % (41.0-53.0); Hemoglobin 14.7 g/dL (13.5-16.0); Immature Granulocytes Auto 3.80 Thou/mm3 (0.00-0.00); Lymphocytes # (Auto) 0.4 Thou/mm3 (1.0-4.8); Lymphocytes % (Auto) 8 % (10-50); Mean Corpuscular HGB Conc 32.3 g/dl (31.0-37.0); Mean Corpuscular Hemoglobin 31.6 pg (25.0-35.0); Mean Corpuscular Volume 98 fL (80-100); Monocytes # (Auto) 0.2 Thou/mm3 (0.0-0.8); Monocytes % (Auto) 3 % (0-12); Neutrophils # (Auto) 1.1 Thou/mm3 (1.8-7.7); Neutrophils % (Auto) 20 % (37-80); Nucleated Red Blood Cell # 0.03 Thou/mm3 (0.00-0.00); Nucleated Red Blood Cell % 1 /100 WBC (0); Platelet Count 605 Thou/mm3 (140-440); RDW Standard Deviation 67.4 fL (35.1-43.9); Red Blood Count 4.65 Miln/mm3 (4.50-5.90); White Blood Count 5.6 Thou/mm3 (3.8-10.6)
[2025-04-28 22:01] LABS: Alanine Aminotransferase 30 U/L (10-49); Albumin, Serum 3.1 gm/dL (3.4-4.8); Albumin/Globulin Ratio 1.4 (1.2-2.2); Alcohol, Blood Medical < 3.0 mg/dL (0-10.0); Alkaline Phosphatase 78 U/L (46-116); Anion Gap 17 (7-16); Aspartate Amino Transferase 81 U/L (0-34); BUN/Creatinine Ratio 21 Ratio (12-20); Bilirubin,Total 0.8 mg/dL (0.3-1.2); Blood Urea Nitrogen 33 mg/dL (9-23); Calcium 8.5 mg/dL (8.3-10.6); Calcium (Corrected) 9.2 mg/dL (8.5-10.1); Carbon Dioxide 16.6 mMol/L (20.0-31.0); Chloride 105 mMol/L (98-107); Creatinine (Component) 1.6 mg/dL (0.6-1.3); Estimated Creatinine Clearance 31.5 mL/min (>60); Globulin 2.2 gm/dL (2.3-3.5); Glucose 80 mg/dL (74-106); Osmolality,Calculated 283 (275-295); Potassium 4.4 mMol/L (3.4-5.1); Sodium 139 mMol/L (136-145); Total Protein 5.3 gm/dL (5.7-8.2); eGFR 43 See Note
--- NOTE | 2025-04-28 22:04 | DES_ITS ---
<Statement entered by Uli Peña MD - 04/28/25 23:29> I have discussed and was present for the essential components of the history, physical examination, diagnosis, and treatment plan with the resident. I agree with the patient's care as documented by the resident and amended herein by me. Uli Peña MD FACP. Documentation for date of: 04/28/25 Summary Date and Time Date of admission: 04/28/25 20:15 Date of : 04/28/25 Time of : 21:59 Summary Hospital Course: Patient is 84 years old male with past medical history of hypertension, BPH, COPD presented to the ED from home due to worsening shortness of breath and altered mental status. Per emergency room notes while transported to the hospital patient was found to be hypoglycemic and hypoxemic, was given D50 and was started on 15 L oxygen with improvement of saturation to 97%. On admission his initial vitals were blood pressure 132/75, pulse 151, respirations 26, temperature 97.5 ?F, oxygen saturation 95% on 15 L. Labs showed WBCs 8.9, hemoglobin 16.2, PLT 679, creatinine 1.5, BUN 43, glucose 66, lactic acid 4.7, anion gap 17, AST 47, troponin I 0.783, BNP 1079. UA showed turbid urine with 1+ protein, 1+ bilirubin, positive leukocyte esterase, WBCs 12, rare bacteria. EKG showed sinus tachycardia. Chest x-ray showed diffuse right-sided pneumonia. While evaluated in the emergency room patient suddenly became unresponsive, sinus bradycardia at 40s was noticed on monitor and pulses were not palpable, CODE BLUE was called, ACLS was started, patient underwent 2 rounds of CPR with epinephrine x 2 with ROSC. He was intubated immediately after ROSC and started on mechanical ventilation. Central and arterial lines were placed, he was started on Levophed. Labs showed worsening lactic acidosis with last reading of 9, ABG showed worsening acidosis with pH 7.1, PCO2 51. He was started on IV vancomycin and Zosyn and was given loading dose of hydrocortisone. His daughter has arrived at the bedside. Goals of care discussion was held at the bedside, she was explained severely he of her father's condition and ultimately decided to proceed with changing his CODE STATUS to DNR/DNI and proceed with comfort care. Patient shortly after his CODE STATUS was changed, TOD 2159. Additional Data Confirmation of as documented by pronouncing clinician: no pulse, no respirations, no heart sounds and pupils fixed and dilated Family: at bedside Attending/PCP notified?: Yes Attending physician: Uli Peña MD Was code activated?: No Autopsy requested?: No credit union examiner notified?: Yes Organ bank notified?: No Advance directives: No Hospice patient?: No Visit Providers Provider Primary care physician: Jessi Wallace PA-C Diagnosis PCOD Cause of : Cardiopulmonary arrest Discharge Plan Plan Patient Disposition: Prescriptions/Referrals Referrals: Jessi Wallace PA-C [Primary Care Provider] - Patient/Caregiver Discharge Instructions Print Language: Upper Sorbian
[2025-04-28 22:21] LABS: Procalcitonin 157.25 ng/ml (0.0-0.49)
[2025-04-28 22:23] LABS: Troponin I 1.415 ng/mL (0.0-0.045)
--- NOTE | 2025-04-28 22:34 | PC.NURSE ---
SPOKE TO RANDELL FROM [employer] AND REPORTED PT'S EXPIRATION. ALL QUESTIONS ANSWERED.
--- NOTE | 2025-04-28 22:35 | PC.NURSE ---
SPOKE TO PORTER FROM [facility] AND REPORTED PT'S .
[2025-04-29 00:30] LABS: Reflex Lactate? Y
== END 2025-04-28 21:59 | disposition expired | DRG 208 ==
LOC: SERX 20:05 → SERHOLD 20:34
PROVIDERS: Emergency Medicine; Student in an Organized Health Care Education/Training Program; Admitting Provider Internal Medicine; Emergency Provider Emergency Medicine; PCP Physician Assistant Medical; Visit Provider Internal Medicine
DX: J96.01 Acute respiratory failure with hypoxia (principal); J18.9 Pneumonia, unspecified organism; R57.9 Shock, unspecified; R64 Cachexia; J44.0 Chronic obstructive pulmonary disease with (acute) lower respiratory infection; N39.0 Urinary tract infection, site not specified; J44.1 Chronic obstructive pulmonary disease with (acute) exacerbation; E87.20 Acidosis, unspecified; F17.210 Nicotine dependence, cigarettes, uncomplicated; N40.0 Benign prostatic hyperplasia without lower urinary tract symptoms; Z68.20 Body mass index [BMI] 20.0-20.9, adult; Z51.5 Encounter for palliative care; I50.9 Heart failure, unspecified; I11.0 Hypertensive heart disease with heart failure; Z66 Do not resuscitate; E16.2 Hypoglycemia, unspecified; I46.8 Cardiac arrest due to other underlying condition
CPT/HCPCS: 36415; 36600; 71045; 80053; 80307; 80320; 81001; 82803; 83036; 83605; 83690; 83735; 83880; 84145; 84484; 85025; 85610; 85730; 87040; 87077; 87086; 87186; 87205; 87400; 87811; 93005; 94002; 94660; 96365; 99284; J0168; J1644; J1720; J2251; J2543; J2598; J3010; J3490; G0480